=== PATIENT | female | born 1990 | race Caucasian/White ===

== ENCOUNTER 2024-09-25 14:00 | Outpatient (CLI) | payer MEDICAID, SELFPAY ==
[2024-09-25 14:32] LABS: Bacteria 0 SEEN /hpf (None Seen); Mucous, Urine 0 SEEN /hpf (<or=2+); White Blood Cells 0 SEEN /hpf (0-5)
[2024-09-25 14:34] LABS: Color, Urine Yellow (Yellow); Glucose, Dipstick Normal (Normal); Ketone-Dipstick Negative (Negative); Leukocyte Esterase-Dipstick Negative /ul (Negative); Nitrite-Dipstick Negative (Negative); Occult Blood-Urine Negative /ul (Negative); Protein-Dipstick Negative (Negative); Specific Gravity, Urine 1.005 (1.002-1.030); Urine Bilirubin Dipstick Negative (Negative); Urine Clarity Clear (Clear); Urine Urobilinogen Normal (Normal)
[2024-09-25 14:44] LABS: Squamous Epithelial Cells - UA 0-5 SEEN /hpf (5-10)
--- NOTE | 2024-09-25 15:00 | NURSING ---
Pt states that she is leaving AMA. She does not want any more care and has an uber outside. Signed AMA papers and refused copy of it. Phone call placed to Dr. Timmons to be made aware that pt is leaving.
[2024-09-25 15:14] LABS: ROM Internal Control Test YES-OK TO RESULT pt. (Internal QC); ROM Patient Test Negative (Negative); Record Kit Lot#, ROM+ K2871
[2024-09-25 15:29] LABS: Barbiturate Urine NEGATIVE (< 200 ng/mL); Benzodiazepine Urine NEGATIVE (< 200 ng/mL); Cocaine Urine NEGATIVE (< 300 ng/mL); Methadone Urine NEGATIVE (< 300 ng/mL); Opiates Urine NEGATIVE (< 300 ng/mL); PCP Urine NEGATIVE (< 25 ng/mL); THC Urine NEGATIVE (< 50 ng/mL)
[2024-09-25 16:51] LABS: Red Blood Cells-Urine 0 SEEN /hpf (0-5)
[2024-09-25 18:31] LABS: Amphetamine Urine NEGATIVE (<1000 ng/mL); Buprenorphine Urine NEGATIVE (< 200 ng/mL); Fentanyl, Urine NEGATIVE; Oxycodone, Urine NEGATIVE (< 100 ng/mL)
--- NOTE | 2024-09-26 17:33 | OB.TRI.PN ---
Progress Notes Date of Service: 09/25/24 Progress Note: patient presented from the half-way with spotting and contractions, pelvic pressure, had reassuring FHT and no contractions on the monitor, cervix closed. I recommended she have blood work drawn and receive IV fluids patient then declined all interventions including IV fluids and blood draw and got up and left AGAINST MEDICAL ADVICE without any further workup and evaluation prior to my being able to come in and see the patient. She was 24 weeks with vaginal bleeding and contractions Laboratory Studies: Laboratory Tests 09/25/24 09/25/24 09/25/24 Range/Units 14:40 14:35 14:25 Urine Color Yellow (Yellow) Urine Clarity Clear (Clear) Urine pH 7.0 (5.0 - 8.0) Ur Specific [place] 1.005 (1.002-1.030) Urine Protein Negative (Negative) mg/dl Urine Glucose (UA) Normal (Normal) mg/dl Urine Ketones Negative (Negative) mg/dl Urine Occult Blood Negative (Negative) /ul Urine Nitrite Negative (Negative) Urine Bilirubin Negative (Negative) mg/dL Urine Urobilinogen Normal (Normal) mg/dl Ur Leukocyte Esterase Negative (Negative) /ul Urine RBC 0 SEEN (0-5) /hpf Urine WBC 0 SEEN (0-5) /hpf Ur Squamous Epith Cells 0-5 SEEN (5-10) /hpf Urine Bacteria 0 SEEN (None Seen) /hpf Urine Mucus 0 SEEN (<or=2+) /hpf Vag Amniotic Fld Detect Negative (Negative) Urine Opiates Screen NEGATIVE (< 300 ng/mL) U Buprenorphine Qual NEGATIVE (< 200 ng/mL) Ur Oxycodone Screen NEGATIVE (< 100 ng/mL) Urine Methadone Screen NEGATIVE (< 300 ng/mL) Urine Fentanyl Screen NEGATIVE Ur Barbiturates Screen NEGATIVE (< 200 ng/mL) Ur Phencyclidine Scrn NEGATIVE (< 25 ng/mL) Ur Amphetamines Screen NEGATIVE (<1000 ng/mL) MDMA (Ecstasy) Screen Cancelled U Benzodiazepines Scrn NEGATIVE (< 200 ng/mL) Urine Cocaine Screen NEGATIVE (< 300 ng/mL) U Cannabinoids Screen NEGATIVE (< 50 ng/mL) Ur Drug Screen Comment Cancelled Assessment & Plan (1) Vaginal bleeding during : (2) 24 weeks gestation of :
== END 2024-09-25 15:09 | disposition home or self-care (01) ==
LOC: WPOUT 14:12 → WP 14:13
PROVIDERS: Advanced Practice Midwife; Visit Provider Obstetrics & Gynecology
DX: O46.92 Antepartum hemorrhage, unspecified, second trimester (principal); Z79.82 Long term (current) use of aspirin; Z3A.24 24 weeks gestation of pregnancy
CPT/HCPCS: 59025; 59050; 80307; 81001; 84112; 87086; 87088; 99221; G0378